=== PATIENT | male | born 2000 | race Caucasian/White ===

== ENCOUNTER 2022-05-20 13:10 | Outpatient (CLI) | payer OTHER, SELFPAY ==
--- NOTE | 2022-05-20 13:27 | ECG_ITS ---
Measurements Intervals [place] Rate: 59 P: 68 ID: [id number] QRS: 81 QRSD: 102 T: 67 QT: 400 QTc: 399 Interpretive Statements SINUS BRADYCARDIA WITH SINUS ARRHYTHMIA WANDERING BASELINE ARTIFACT BORDERLINE ECG NO PREVIOUS ECG AVAILABLE FOR COMPARISON Electronically Signed On 05-20-2022 14:58:30 CDT by Ulises Veras M.D.
== END 2022-05-20 13:11 | disposition home or self-care (01) ==
LOC: ANHCARD 13:13
PROVIDERS: PCP Pediatrics; Visit Provider Pediatrics
DX: Z02.5 Encounter for examination for participation in sport (principal); R00.1 Bradycardia, unspecified
CPT/HCPCS: 93005